=== PATIENT | female | born 1990 | race Caucasian/White ===

== ENCOUNTER 2018-06-16 20:40 | Emergency (ER) | payer OTHER ==
[2018-06-16 20:46] VITALS: BP 109/70
[2018-06-16] MEDS ORDERED: ERYTHROMYCIN OPHTH OINT 1 GM TUBE EACHEYE STA (20:55)
--- NOTE | 2018-06-16 20:57 | ED Physician Documentation ---
PD HPI OPHTHO - Stated complaint Stated Complaint: PINK RT EYE - Chief complaint Chief Complaint: Heent - History obtained from History obtained from: Patient - History of Present Illness Timing - onset: Today (28-year-old who does not wear contact lenses developed right eye inflammation with green drainage this morning. The left eye is also slightly inflamed. There is no visual deficit.) Review of Systems Constitutional: denies: Fever, Chills Eyes: reports: Discharge, Irritation. denies: Loss of vision, Decreased vision , Photophobia Ears: denies: Ear pain Nose: denies: Congestion PD PAST MEDICAL HISTORY - Present Medications Home Medications: Ambulatory Orders Medication Instructions Recorded Confirmed Erythromycin Base [Erythromycin] 1 applic OP 5XD 7 Days oint...g. 06/16/18 Sertraline HCl [Zoloft] 100 mg PO DAILY 06/16/18 06/16/18 metFORMIN [Glucophage] 850 mg PO BID 06/16/18 06/16/18 - Allergies Allergies/Adverse Reactions: Allergies Allergy/AdvReac Type Severity Reaction Status Date / Time No Known Drug Allergies Allergy Verified 06/16/18 20:46 PD ED PE NORMAL - Vitals Vital signs reviewed: Yes - General General: Alert and oriented X 3, No acute distress - HEENT HEENT: PERRL, EOMI, Other (She has right eye conjunctivitis with some greenish drainage. Extraocular movements are normal. There is mild left eye conjunctivitis without drainage.) - Neck Neck: Supple, no meningeal sign, No bony TTP - Neuro Neuro: Alert and oriented X 3, Normal speech Eye Opening: Spontaneous Motor: Obeys Commands Verbal: Oriented GCS Score: 15 - Psych Psych: Normal mood, Normal affect Results - Vitals Vitals: Vital Signs - 24 hr 06/16/18 20:42 Temperature 36.5 C Heart Rate 81 Respiratory 16 Rate Blood Pressure 109/70 O2 Saturation 100 Oxygen O2 Source Room air PD MEDICAL DECISION MAKING - Sepsis Event Vital Signs: Vital Signs - 24 hr 06/16/18 20:42 Temperature 36.5 C Heart Rate 81 Respiratory 16 Rate Blood Pressure 109/70 O2 Saturation 100 Oxygen O2 Source Room air Departure - Departure Disposition: 01 Home, Self Care Clinical Impression: Conjunctivitis Qualifiers: Conjunctivitis type: acute Acute conjunctivitis type: bacterial Laterality: bilateral Qualified Code(s): H10.33 - Unspecified acute conjunctivitis, bilateral Condition: Good Record reviewed to determine appropriate education?: Yes Instructions: ED Conjunctivitis Nonspecific Follow-Up: Tunde Christianson MD [Provider Admit Priv/Credential] - Within 3 Days Prescriptions: Erythromycin Base [Erythromycin] 1 applic OP 5XD 7 Days oint...g.
== END 2018-06-16 21:12 | disposition home or self-care (01) ==
LOC: ED 20:40
DX: H10.33 Unspecified acute conjunctivitis, bilateral (principal)
CPT/HCPCS: 99283; J3490